=== PATIENT | male | born 1970 | race Caucasian/White ===

== ENCOUNTER 2016-09-27 19:50 | Emergency (ER) | payer OTHER ==
[~2016-09-27] VITALS: Ht 180.3 cm; Wt 83.9 kg
[2016-09-27] MEDS ORDERED: SODIUM CHLORIDE 0.9% 1,000 ML IVB ONE (20:10)
[2016-09-27] MEDS ORDERED: DILTIAZEM HCL 25 MG/5 ML VIAL IV ONE (20:15)
[2016-09-27 20:44] LABS: Basophils # (auto) 0 uL; Basophils % (auto) 0.2 % (0.0-2.0); Eosinophils # (auto) 0.1 uL; Eosinophils % (auto) 1.1 % (0.0-7.0); Hematocrit 50.6 % (41.0-53.0); Hemoglobin 16.8 g/dL (13.5-17.5); Lymphocytes # (auto) 1.9 uL; Mean Corpuscular Hemoglobin 28.9 pg (28.0-32.0); Mean Corpuscular Hgb Conc. 33.2 g/dL (32.0-36.0); Mean Corpuscular Volume 87.1 fL (80.0-100.0); Mean Platelet Volume 8.4 fL (7.4-10.4); Monocytes # (auto) 1.1 uL; Monocytes % (auto) 8.4 % (0.0-12.0); Neutrophils # (auto) 9.6 uL; Neutrophils % (auto) 75.3 % (37.0-80.0); Platelet Count (auto) 212 10^3/uL (140-450); Red Cell Distribution Width 13.4 % (11.6-16.0); White Blood Cell 12.7 10^3/uL (4.4-10.8)
[2016-09-27 20:49] LABS: Albumin 4.1 g/dL (3.4-5.0); BUN/Creatinine Ratio 18.1; Calcium 8.8 mg/dL (8.5-10.1); Potassium 3.6 mmol/L (3.5-5.1)
[2016-09-27 20:52] LABS: Bilirubin, Total 0.9 mg/dL (0.2-1.0); Total Protein 7.5 g/dL (6.4-8.2)
[2016-09-27 20:55] LABS: INR 1.14 (0.9-1.15); Partial Thromboplastin Time 30.7 sec (22.64-33.71); Prothrombin Time 11.7 sec (9.37-12.3)
[2016-09-27] MEDS ORDERED: METOPROLOL TARTRATE 50 MG TAB PO ONE (21:00)
[2016-09-27 23:39] VITALS: BP 110/74
== END 2016-09-28 00:20 | disposition short-term general hospital (02) ==
LOC: EDBD 19:50 → ER 20:11
DX: I48.0 Paroxysmal atrial fibrillation (principal)
CPT/HCPCS: 36415; 71010; 80053; 83735; 84484; 85025; 85610; 85730; 93005; 96361; 96374